=== PATIENT | male | born 1940 | race Caucasian/White ===

== ENCOUNTER 2016-08-03 11:30 | Day surgery (SDC) | payer OTHER ==
[2016-08-03] MEDS ORDERED: BENZOCAINE UNIT DOSE SPRAY HURRICAINE MM ONE (11:45)
[2016-08-03] MEDS ORDERED: MIDAZOLAM 2 MG/2 ML VIAL IVP ONE (11:45)
[2016-08-03] MEDS ORDERED: NS 1,000 ML IV ONE (11:45)
[2016-08-03] MEDS ORDERED: fentaNYL 100 MCG/2 ML INJ IVP ONE (11:45)
[2016-08-03] MEDS ORDERED: MIDAZOLAM 2 MG/2 ML VIAL ONE (12:31)
[2016-08-03] MEDS ORDERED: fentaNYL 100 MCG/2 ML INJ ONE (12:32)
--- NOTE | 2016-08-04 10:11 | ECHO ---
[id number] + + [address] : : [facility] [address] : : [phone] + + Transesophageal Echocardiographic Report + -------+ :Name: Pedro DUARTE Date: 08/03/2016 12:16 PM : : Hospital Admission Number: [id number] Locati on: 213: :: 1940 Gender: Male : :Age: 76 yrs Race: WH : :Reason For Study: Eval LV Fx : :History: Eval Aortic valve : + -------+ Left Ventricle Ejection Fraction = 50-55%. The rhythm is atrial fibrillation with a rate of 129bpm. Right Ventricle The right ventricle is normal in size and function. Atria Injection of contrast documented no interatrial shunt. The left atrium is severely dilated. No left atrial mass or thrombus visualized. The left atrial appendage has been oversewn. Mitral Valve Minimal posterior mitral leaflet prolapse. There is no mitral valve stenosis. There is moderate mitral regurgitation. The mitral regurgitant jet is anteriorly directed, which is consistent with posterior leaflet pathology. Tricuspid Valve There is moderate tricuspid regurgitation. Aortic Valve There is mild to moderate aortic valve calcification. There is no aortic valvular vegetation. Mild aortic regurgitation. Pulmonic Valve The pulmonic valve is normal in structure and function. Vessels The aortic root is normal size. Pericardium There is no pericardial effusion. Procedure With heart rate, blood pressure and oximetry monitered the patient was administered IV Versed, fentanyl and the bite block in place, the throat was anesthetized with topical spray. The Omniplane transesophageal probe was passed without difficulty. No complications. Conclusion A 2D transesophageal echocardiogram with color flow Doppler was performed. The rhythm is atrial fibrillation with a rate of 129bpm. Ejection Fraction = 50-55%. Injection of contrast documented no interatrial shunt. The left atrium is severely dilated. No left atrial mass or thrombus visualized. The left atrial appendage has been oversewn. Minimal posterior mitral leaflet prolapse There is moderate mitral regurgitation. The mitral regurgitant jet is anteriorly directed, which is consistent with posterior leaflet pathology. There is moderate tricuspid regurgitation. There is mild to moderate aortic valve calcification. There is no aortic valvular vegetation. Mild aortic regurgitation. Final Reading Physician: Dr Temi Go electronically signed on 08/04/2016 10:10 AM Ordering Physician: Temi Go Performed By: Dr Temi Go
== END 2016-08-03 15:16 | disposition home or self-care (01) ==
LOC: FCATH 11:30
PROVIDERS: ATTEND Internal Medicine Cardiovascular Disease
PROC: B246ZZ4 Ultrasonography of Right and Left Heart, Transesophageal (ICD-10-PCS; principal; 2016-08-03)
DX: I48.91 Unspecified atrial fibrillation (principal); I25.10 Atherosclerotic heart disease of native coronary artery without angina pectoris; I10 Essential (primary) hypertension; Z95.2 Presence of prosthetic heart valve; Z95.1 Presence of aortocoronary bypass graft
CPT/HCPCS: J2250; J3010

== ENCOUNTER 2016-08-13 14:44 | Emergency (ER) | payer OTHER ==
[2016-08-13 14:48] VITALS: BP 144/99; RESP 14
--- NOTE | 2016-08-13 15:02 | EDPHY ---
H & P Stated Complaint: Uncontrolled A-FIB Time Seen by Provider: 08/13/16 15:01 - Personal History Current Tetanus/Diphtheria Vaccine: Yes Current Tetanus Diphtheria and Acellular Pertussis (TDAP): Yes Tetanus Vaccine Date: 2009 - Medical/Surgical History Hx Asthma: No Hx Chronic Respiratory Disease: No Hx Diabetes: No Hx Cardiac Disease: Yes Hx Renal Disease: No Hx Cirrhosis: No Hx Alcoholism: No Hx HIV/AIDS: No Hx Splenectomy or Spleen Trauma: No Other PMH: HX: Rapid A-Fib, BPH, R KNEE REPLACEMENT, B CATARACTS, MENISCETOMY, GLUCOMA, B ING HERNIA - Social History Smoking Status: Never smoked Constitutional: Initial Vital Signs Heart Rate 133 H 08/13/16 14:46 Respiratory Rate 14 08/13/16 14:46 Blood Pressure 144/99 H 08/13/16 14:46 O2 Sat (%) 96 08/13/16 14:46 O2 Delivery Mode Room Air Allergies/Adverse Reactions: peanut Allergy (Verified 03/26/13 19:23) Home Medications: Medication Instructions Recorded Atorvastatin Calcium [Lipitor 80 80 mg PO DAILY 01/23/15 mg] Bimatoprost 0.01% [Lumigan 0.01% 1 drops EACHEYE HS 01/23/15 (*)] Cholecalciferol Vit D3 [Vitamin D3 1,000 units PO Q48H 01/23/15 (*)] Finasteride [Proscar 5 MG (*)] 5 mg PO HS 01/23/15 Levothyroxine [Synthroid 100 mcg 100 mcg PO DAILY06 01/23/15 (*)] Levothyroxine [Synthroid 88 mcg 88 mcg PO SUMOWEFR 01/23/15 (*)] Multivitamins [Multivitamin (*)] 1 each PO Q3D 01/23/15 Apixaban [Eliquis] 5 mg PO BID #60 tab 01/30/15 Toprol Xl 50 mg (*) 50 mg PO BID 08/03/16 Medical Decision Making ED Course/Re-evaluation: CHIEF COMPLAINT: Atrial fibrillation HISTORY OF PRESENT ILLNESS: This is an anticoagulated 76 y/o male arriving with his at the referral of his PCP due to rapid atrial fibrillation rate of 140 today. He has a significant cardiac disease history including CAD, CABG, and atrial fibrillation. He states his atrial fibrillation has been poorly controlled over the last 2 years, but he is largely unaware when he is not in a normal rhythm. He feels his rate has been marginally more rapid over the last couple weeks. On 08/03/16, 10 days ago, he had a GERMAINE that did not show vegetation and was placed on a 24hr Holter monitor with plan to increase his Toprol dose to 50mg BID. He is due to follow up with Dr. Go in the next week. He says he has felt slightly short of breath at exertion for the last few weeks , but otherwise feels like he is at his baseline. He denies dizziness, lightheadedness, chest pain, or palpitations. He reports he is compliant with his medications. REVIEW OF SYSTEMS: A 10 point review of systems was performed and is negative with the exception of the elements mentioned in the history of present illness. PHYSICAL EXAM: HR, BP, O2 Sat, RR. Temp noted General Appearance: Alert, well hydrated, appropriate, and non-toxic appearing. Head: Atraumatic without scalp tenderness or obvious injury Eyes: Pupils equal, round, reactive to light and accommodation, EOMI, no trauma , no injection. Nose: Atraumatic, no rhinorrhea, clear. Throat: mucus membranes moist. Neck: Supple Respiratory: No retractions, no distress, no wheezes, and no accessory muscle use. Lungs are clear to auscultation bilaterally. Cardiovascular: Irregularly irregular rapid rate. Good capillary refill all extremities. Gastrointestinal: Abdomen is soft, nontender, non-distended, no masses, no rebound, no guarding, no peritoneal signs. Musculoskeletal: Normal active ROM of all extremities, atraumatic. Neurological: Alert, appropriate, and interactive. Nonfocal neuro exam. Skin: No rashes, good turgor, no nodules on palpation. Past medical history: atrial fibrillation - Eliquis, CAD, hypothyroidism Past surgical history: CABG Family history: noncontributory Social history: at bedside. 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 Ame Mcintosh Prior medical records reviewed including cath report 01/15/15. DIAGNOSTICS/PROCEDURES/CRITICAL CARE TIME: The 12 lead EKG was interpreted by myself. Atrial fibrillation rate 130. See hard copy and/or "tracemaster" electronic copy for interpretation. DIFFERENTIAL DIAGNOSIS: The differential diagnosis for the patient's narrow complex tachycardia included but was not limited to various causes of sinus tachycardia such as dehydration and medicines, SVT, atrial flutter, atrial fibrillation, pulmonary causes. MEDICAL DECISION MAKING: This is a 76 y/o male with chronic poorly-controlled atrial fibrillation who presents at the referral of his PCP due to rapid atrial fibrillation, but with no acute complaints. His PCP was unable to get him into his cryptologic supervisor's office today, so referred him to the ED. He denies any acute symptoms related to this and is generally unable to tell when he is not in a normal rhythm. His EKG here shows rapid atrial fibrillation rate around 130. His exam is otherwise unremarkable. IV established. Basic labs drawn. Plan to consult cardiology to determine their long-term management plan for him. 1530: Consulted with [facility]. Dr. Go has recommended starting Diltazem CD in addition to his Toprol and follow up with her as scheduled. She is not concerned about any lab work today, even if abnormal labs return. I discussed this plan with the patient. He is comfortable with this plan and ready for discharge home. Strict return precautions given. - Data Points Laboratory Results: Laboratory Results 08/13/16 15:20 08/13/16 15:20 08/13/16 08/13/16 08/13/16 15:20 15:20 15:20 WBC 7.62 10^3/uL 10^3/uL (3.80-9.50) RBC 5.18 10^6/uL 10^6/uL (4.40-6.38) Hgb 13.0 g/dL L g/dL (13.7-17.5) Hct 40.9 % % (40.0-51.0) MCV 79.0 fL L fL (81.5-99.8) MCH 25.1 pg L pg (27.9-34.1) MCHC 31.8 g/dL L g/dL (32.4-36.7) RDW 15.1 % % (11.5-15.2) Plt Count 161 10^3/uL 10^3/uL (150-400) MPV 11.1 fL fL (8.7-11.7) Neut % (Auto) 66.3 % % (39.3-74.2) Lymph % (Auto) 20.9 % % (15.0-45.0) Brown % (Auto) 9.4 % % (4.5-13.0) Eos % (Auto) 2.4 % % (0.6-7.6) Baso % (Auto) 0.7 % % (0.3-1.7) Nucleat RBC Rel Count 0.0 % % (0.0-0.2) Absolute Neuts (auto) 5.06 10^3/uL 10^3/uL (1.70-6.50) Absolute Lymphs (auto) 1.59 10^3/uL 10^3/uL (1.00-3.00) Absolute Monos (auto) 0.72 10^3/uL 10^3/uL (0.30-0.80) Absolute Eos (auto) 0.18 10^3/uL 10^3/uL (0.03-0.40) Absolute Basos (auto) 0.05 10^3/uL 10^3/uL (0.02-0.10) Absolute Nucleated RBC 0.00 10^3/uL 10^3/uL (0-0.01) Immature Gran % 0.3 % % (0.0-1.1) Immature Gran # 0.02 10^3/uL 10^3/uL (0.00-0.10) PT 17.7 SEC H SEC (12.0-15.0) INR 1.46 H (0.83-1.16) APTT 34.3 SEC SEC (23.0-38.0) Sodium 140 mEq/L mEq/L (134-144) Potassium 4.2 mEq/L mEq/L (3.5-5.2) Chloride 107 mEq/L mEq/L (97-110) Carbon Dioxide 23 mEq/l mEq/l (22-31) Anion Gap 10 mEq/L mEq/L (8-16) BUN 22 mg/dL mg/dL (7-23) Creatinine 1.1 mg/dL mg/dL (0.7-1.3) Estimated GFR > 60 Glucose 147 mg/dL H mg/dL (70-100) Calcium 9.2 mg/dL mg/dL (8.5-10.4) Magnesium 1.9 mg/dL mg/dL (1.6-2.3) Troponin I 0.013 ng/mL ng/mL (0-0.034) NT-Pro-B Natriuret Pep 2480 pg/mL H pg/mL (0-450) TSH 0.439 uIU/mL L uIU/mL (0.465-4.680) Departure - Departure Disposition: Home, Routine, Self-Care Clinical Impression: Atrial fibrillation Qualifiers: Atrial fibrillation type: chronic Qualified Code(s): I48.2 - Chronic atrial fibrillation Condition: Good Instructions: Diltiazem (By mouth), A-fib (Atrial Fibrillation) (ED) Additional Instructions: 1. Take 125mg Diltazem daily until instructed otherwise by Dr. Go. 2. Continue taking your Toprol as directed. 3. Follow up with Dr. Go as planned. 4. Return to the ED for chest pain, worsening shortness of breath, lightheadedness, fainting, or other worsening of condition. Referrals: Ame Mcintosh MD [Primary Care Provider] - As per Instructions Temi Go MD [Medical Doctor] - As per Instructions Report Scribed for: Maverick Campuzano Report Scribed by: Fatou Ireland Date of Report: 08/13/16 Time of Report: 15:13
--- NOTE | 2016-08-13 15:06 | CPEKG ---
Heart Rate: 120 RR Interval: 500 QRSD Interval: 100 QT Interval: 348 QTC Interval: 492 QRS Jewett: 15 T Wave Jewett: 194 EKG Severity - ABNORMAL ECG - EKG Impression: ATRIAL FLUTTER WITH 2:1 AV BLOCK EKG Impression: PAIRED VENTRICULAR PREMATURE COMPLEXES EKG Impression: BORDERLINE PROLONGED QT INTERVAL Electronically Signed By: Maverick Campuzano 13-Aug-2016 22:49:54
[2016-08-13 15:35] LABS: % IMMATURE GRANULYOCYTES 0.3 % (0.0-1.1); ABSOLUTE IMMATURE GRANULOCYTES 0.02 10^3/uL (0.00-0.10); ADD DIFF? NO; ADD MORPH? NO; ADD SCAN? NO; ATYPICAL LYMPHOCYTE FLAG 0 (0-99); FRAGMENT RBC FLAG 0 (0-99); HEMATOCRIT 40.9 % (40.0-51.0); LEFT SHIFT FLG 0 (0-99); LIPEMIA HEMOLYSIS FLAG 80 (0-99); MEAN CELL HEMOGLOBIN 25.1 pg (27.9-34.1); MEAN CELL HEMOGLOBIN CONCENTR. 31.8 g/dL (32.4-36.7); MEAN PLATELET VOLUME 11.1 fL (8.7-11.7); PLATELET CLUMPS FLAG 0 (0-99); PLATELET COUNT 161 10^3/uL (150-400); RED BLOOD CELL COUNT 5.18 10^6/uL (4.40-6.38); RED CELL DISTRIBUTION WIDTH 15.1 % (11.5-15.2)
[2016-08-13] MEDS ORDERED: DILTIAZEM CD 120 MG CAP PO SCH (15:45)
[2016-08-13 15:48] LABS: ANION GAP 10 mEq/L (8-16); CALCIUM 9.2 mg/dL (8.5-10.4); CARBON DIOXIDE 23 mEq/l (22-31); CHLORIDE 107 mEq/L (97-110); CREATININE 1.1 mg/dL (0.7-1.3); GLOMERULAR FILTRATION RATE > 60; GLUCOSE 147 mg/dL (70-100); MAGNESIUM 1.9 mg/dL (1.6-2.3); POTASSIUM 4.2 mEq/L (3.5-5.2); SODIUM 140 mEq/L (134-144)
[2016-08-13 15:50] LABS: INR 1.46 (0.83-1.16); PROTIME(PATIENT) 17.7 SEC (12.0-15.0)
[2016-08-13 15:51] LABS: APTT 34.3 SEC (23.0-38.0)
[2016-08-13 16:01] LABS: TROPONIN I 0.013 ng/mL (0-0.034)
[2016-08-13 16:41] VITALS: PULSE 110; O2SAT 94
== END 2016-08-13 16:40 | disposition home or self-care (01) ==
DX: I48.2 Chronic atrial fibrillation (principal); I25.810 Atherosclerosis of coronary artery bypass graft(s) without angina pectoris; Z79.01 Long term (current) use of anticoagulants

== ENCOUNTER → 2016-08-25 | Outpatient (CLI) | payer OTHER | LOC: FIMAGING 13:15 | PROVIDERS: ATTEND Internal Medicine Cardiovascular Disease | DX: J84.9 Interstitial pulmonary disease, unspecified (principal); I48.91 Unspecified atrial fibrillation ==

== ENCOUNTER → 2016-08-31 | Day surgery (SDC) | payer OTHER ==
[~2016-08-31] MED LIST: MIDAZOLAM 2 MG/2 ML VIAL IVP ONE; NS 500 ML IV ONE; PROPOFOL 200 MG/20 ML VIAL IVP ONE; fentaNYL 100 MCG/2 ML INJ IVP ONE
[2016-08-31 09:00] LABS: INR 1.5 (0.83-1.16); PROTIME(PATIENT) 18.1 SEC (12.0-15.0)
[2016-08-31 09:01] LABS: APTT 37.4 SEC (23.0-38.0)
[2016-08-31 09:09] LABS: ANION GAP 9 mEq/L (8-16); CALCIUM 9.5 mg/dL (8.5-10.4); CARBON DIOXIDE 22 mEq/l (22-31); CHLORIDE 107 mEq/L (97-110); CREATININE 1.3 mg/dL (0.7-1.3); GLOMERULAR FILTRATION RATE 53; GLUCOSE 101 mg/dL (70-100); POTASSIUM 4.3 mEq/L (3.5-5.2); SODIUM 138 mEq/L (134-144)
--- NOTE | 2016-08-31 10:04 | CPEKG ---
Heart Rate: 94 RR Interval: 638 P-R Interval: 248 QRSD Interval: 102 QT Interval: 412 QTC Interval: 516 P [place]bury: 48 QRS [place]: 30 T Wave [place]: 179 EKG Severity - ABNORMAL ECG - EKG Impression: SINUS RHYTHM EKG Impression: RUN OF VENTRICULAR PREMATURE COMPLEXES EKG Impression: FIRST DEGREE AV BLOCK EKG Impression: compared EKG August 13, sinus rhythm has replaced atrial flutter EKG Impression: PROBABLE LVH WITH SECONDARY REPOL ABNRM Electronically Signed By: David Valenzuela 31-Aug-2016 10:35:47
--- NOTE | 2016-08-31 10:42 | CPIP ---
[f rep st] INVASIVE CARDIAC PROCEDURE DATE OF PROCEDURE: 08/31/2016 PROCEDURE: Direct current cardioversion. INDICATIONS: Symptomatic atrial flutter. COMPLICATIONS: None apparent. DESCRIPTION OF PROCEDURE: N.p.o. status was confirmed, informed consent obtained, and time-out perf ormed. Sedation was provided by the anesthesia service. The patient has been taking his Eliquis wi thout any missed doses for greater than 6 weeks so, therefore, we did not perform GERMAINE. The patient received a single 200-joule synchronized shock, which converted him from atrial flutter to sinus rhythm with PVCs. 12-lead EKG is pending. CONCLUSIONS: 1. Successful direct current cardioversion. 2. Continue Eliquis and metoprolol. 3. Discontinue diltiazem. 4. Follow up as scheduled on 09/[address] Go. Results discussed with the patient's family. /[id number]/MODL
--- NOTE | 2016-08-31 14:05 | CPEKG ---
Heart Rate: 108 RR Interval: 556 QRSD Interval: 106 QT Interval: 384 QTC Interval: 515 QRS [place]vas: 49 T Wave Canvas: 246 EKG Severity - ABNORMAL ECG - EKG Impression: ATRIAL FLUTTER, A-RATE 283 EKG Impression: RUN OF VENTRICULAR PREMATURE COMPLEXES EKG Impression: PROBABLE LVH WITH SECONDARY REPOL ABNRM EKG Impression: PROLONGED QT INTERVAL Electronically Signed By: Andrea Chu 01-Sep-2016 12:25:06
== END | disposition home or self-care (01) ==
LOC: FCATH 08:10
PROVIDERS: ATTEND Internal Medicine Cardiovascular Disease
PROC: 5A2204Z Restoration of Cardiac Rhythm, Single (ICD-10-PCS; principal; 2016-08-31)
DX: I48.92 Unspecified atrial flutter (principal); I25.10 Atherosclerotic heart disease of native coronary artery without angina pectoris; Z95.1 Presence of aortocoronary bypass graft; I10 Essential (primary) hypertension; I38 Endocarditis, valve unspecified; E78.5 Hyperlipidemia, unspecified; E03.9 Hypothyroidism, unspecified; G47.30 Sleep apnea, unspecified
CPT/HCPCS: J2250; J2704

== ENCOUNTER 2016-10-20 07:17 | Observation (INO) | payer OTHER ==
[2016-10-20] MEDS ORDERED: MIDAZOLAM 2 MG/2 ML VIAL IVP ONE (07:24)
[2016-10-20] MEDS ORDERED: NS 1,000 ML IV ONE (07:24)
[2016-10-20] MEDS ORDERED: BUPIVACAINE 0.5% 30 ML SDV ONE (07:28)
[2016-10-20] MEDS ORDERED: HEPARIN 10,000 UNIT/10 ML MDV ONE (07:28)
[2016-10-20] MEDS ORDERED: LIDOCAINE 1% 300 MG/30 ML SDV ONE (07:28)
--- NOTE | 2016-10-20 07:39 | CPEKG ---
Heart Rate: 106 RR Interval: 566 QRSD Interval: 100 QT Interval: 396 QTC Interval: 526 QRS Pelham: 30 T Wave Pelham: 227 EKG Severity - ABNORMAL ECG - EKG Impression: ATRIAL FLUTTER, A-RATE 288 EKG Impression: PAIRED VENTRICULAR PREMATURE COMPLEXES EKG Impression: PROBABLE LVH WITH SECONDARY REPOL ABNRM Electronically Signed By: Huber Jc 20-Oct-2016 11:06:48
[2016-10-20 07:58] LABS: % IMMATURE GRANULYOCYTES 0.4 % (0.0-1.1); ABSOLUTE IMMATURE GRANULOCYTES 0.03 10^3/uL (0.00-0.10); ADD DIFF? NO; ADD MORPH? NO; ADD SCAN? NO; ATYPICAL LYMPHOCYTE FLAG 10 (0-99); FRAGMENT RBC FLAG 0 (0-99); HEMATOCRIT 39.3 % (40.0-51.0); HEMOGLOBIN 12.5 g/dL (13.7-17.5); LEFT SHIFT FLG 0 (0-99); LIPEMIA HEMOLYSIS FLAG 80 (0-99); MEAN CELL HEMOGLOBIN 24.8 pg (27.9-34.1); MEAN CELL HEMOGLOBIN CONCENTR. 31.8 g/dL (32.4-36.7); MEAN CELL VOLUME 77.8 fL (81.5-99.8); MEAN PLATELET VOLUME 11.5 fL (8.7-11.7); PLATELET CLUMPS FLAG 0 (0-99); PLATELET COUNT 164 10^3/uL (150-400); RED BLOOD CELL COUNT 5.05 10^6/uL (4.40-6.38); RED CELL DISTRIBUTION WIDTH 15.9 % (11.5-15.2)
[2016-10-20 08:03] LABS: INR 1.28 (0.83-1.16)
[2016-10-20 08:13] LABS: ANION GAP 10 mEq/L (8-16); CALCIUM 9.2 mg/dL (8.5-10.4); CARBON DIOXIDE 23 mEq/l (22-31); CHLORIDE 110 mEq/L (97-110); CREATININE 1.1 mg/dL (0.7-1.3); GLOMERULAR FILTRATION RATE > 60; GLUCOSE 96 mg/dL (70-100); MAGNESIUM 1.7 mg/dL (1.6-2.3); POTASSIUM 4.2 mEq/L (3.5-5.2); SODIUM 143 mEq/L (134-144)
[2016-10-20] MEDS ORDERED: fentaNYL 100 MCG/2 ML INJ ONE ×2 (08:54→12:51)
[2016-10-20] MEDS ORDERED: ROCURONIUM 50 MG/5 ML VIAL ONE ×2 (08:54→10:11)
[2016-10-20] MEDS ORDERED: DEXAMETHASONE 4 MG/ML VIAL ONE (08:54)
[2016-10-20] MEDS ORDERED: PROPOFOL/EMULSION 500 MG/50 ML BOTTLE IV ONE ×2 (08:54→09:55)
[2016-10-20] MEDS ORDERED: ONDANSETRON 4 MG/2 ML VIAL ONE (08:59)
[2016-10-20] MEDS ORDERED: PHENYLEPHRINE HCL 100 MCG/ML SYR ONE ×2 (09:15→09:46)
[2016-10-20] MEDS ORDERED: epHEDrine SULFATE 10 MG/ML SYR ONE ×2 (09:15→09:19)
[2016-10-20] MEDS ORDERED: PHENYLEPHRINE 10 MG/ML SDV ONE (09:51)
[2016-10-20] MEDS ORDERED: SUGAMMADEX SODIUM 200 MG/2 ML VIAL IVP ONE (10:55)
[2016-10-20] MEDS ORDERED: ATROPINE SULFATE 1 MG/10 ML SYR ONE (10:58)
[2016-10-20] MEDS ORDERED: PROTAMINE SULFATE 50 MG/5 ML VIAL IVP ONE (10:59)
[2016-10-20] MEDS ORDERED: LR 500 ML IV PRN (11:45)
[2016-10-20] MEDS ORDERED: ONDANSETRON 4 MG/2 ML VIAL IVP PRN (11:45)
[2016-10-20] MEDS ORDERED: HYDROCODONE/APAP 5/325 TAB PO PRN (11:45)
[2016-10-20] MEDS ORDERED: MEPERIDINE 25 MG/ML SYR IVP PRN (11:45)
[2016-10-20] MEDS ORDERED: NALOXONE HCL 0.4 MG/ML INJ IVP PRN (11:45)
[2016-10-20] MEDS ORDERED: fentaNYL 100 MCG/2 ML INJ IVP PRN (11:45)
[2016-10-20] MEDS ORDERED: ACETAMINOPHEN 500 MG TAB PO PRN (11:45)
[2016-10-20] MEDS ORDERED: LABETALOL HCL 50 MG/10 ML SYR IVP PRN (11:45)
--- NOTE | 2016-10-20 12:05 | EPPROC ---
Electrophysiology Procedure Note: ELECTROPHYSIOLOGIC STUDY AND CATHETER MEDIATED ABLATION FOR SUBEUSTACHIAN ISTHMUS DEPENDENT COUNTERCLOCKWISE ATRIAL FLUTTER: INDICATION: Recurrent atrial flutter PROCEDURES PERFORMED: 90877-29 EP evaluation with RA/RV/LA pace/record, with arrhythmia induction 44315-33 EP evaluation with RA/RV pace record, insert/reposition catheter, with arrhythmia induction 45162 SVT ablation 93835 3D mapping Fluoroscopy Catheters & Anesthesia: The patient arrived in the Electrophysiology Laboratory in the fasting state. The right clavicular region, right groin, and left groin area were prepped and draped in the usual sterile manner. Anesthesiologist Dr. Linda Baker administered general anesthesia. Appropriate non-invasive blood pressure, pulse oximetry and end-tidal CO2 monitoring was established. GERMAINE done preprocedure showed moderate to severe MR, GRIFFIN was surgically excluded from his prior surgery. This was reviewed with patients supervisor statement clerks Dr. Go and we decided to move forward with ablation for atrial flutter. All catheters were placed percutaneously using the modified Seldinger technique , and advanced into position under fluoroscopic guidance. One #7 Cambodian deflectable octapolar electrode catheter was advanced to the His-bundle position via the left femoral vein (2mm spacing; except the proximal ring which was 25cm from the tip used for unipolar recordings) and then to the CS ostium for pacing. One # 7 Cambodian Halo catheter was inserted through the right femoral vein and was placed at the tricuspid annulus. Heparin 9000 U was given. Patient was off Eliquis x 24 hrs.. On arrival to the Electrophysiology Laboratory the patient was in atrial flutter , CL 230 ms, entrainment mapping confirmed cavotricuspid isthmus dependent atrial flutter. Cardioversion was performed due to hypotension. In preparation for ablation of typical atrial flutter, a high-resolution 3D (3 dimensional) Carto electroanatomical map of the sub-Eustachian isthmus and right atrium was obtained during pacing of the posterolateral coronary sinus. For ablation of typical atrial flutter, one Agilis sheath was placed in the right atrium. A #8 Cambodian deflectable quadrapolar electrode catheter (2mm-5mm- 2mm spacing) with 3.5 mm irrigated tip electrode and location sensor for the Intexys mapping system was inserted in the long sheath and advanced to the right atrium. Radiofrequency applications were applied between the tricuspid annulus at 0630 oclock as seen in the JAIR view and the inferior vena cava. This achieved conduction block across the isthmus. Following ablation of the atrial flutter, programmed atrial stimulation was performed in the baseline state. No atrial arrhythmias were inducible post ablation. Post ablation, a high-resolution electroanatomical map of the sub-Eustachian isthmus was obtained during pacing of the posterolateral coronary sinus. This confirmed conduction block across the sub-Eustachian isthmus. Bidirectional block was also confirmed by pacing. The catheters were removed. Long sheath was changed to short sheath. The patient was transferred to the cardiovascular holding area in stable condition. Vascular access sheaths were removed in the holding area. There were no apparent complications. CONCLUSIONS: 1. 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 2. Successful catheter mediated ablation of cavotricuspid isthmus achieving bi -directional conduction block across cavotricuspid isthmus. 3. No apparent complications. 4. May need definitive therapy for mitral regurgitation in near future. Will reassess with echocardiogram during sinus rhythm. Patient Problems: Problems Problem Status Onset CAD, multiple vessel Acute Ascending aorta enlargement Acute Aortic valve insufficiency Acute Pulmonary nodules/lesions, multiple Chronic Emphysema of lung Acute Frequent PVCs Chronic S/P CABG x 4 Acute Postoperative atrial fibrillation Acute
[2016-10-20] MEDS ORDERED: FUROSEMIDE 40 MG TAB PO PRN (12:11)
[2016-10-20 12:27] LABS: ANION GAP 8 mEq/L (8-16); CALCIUM 8.4 mg/dL (8.5-10.4); CARBON DIOXIDE 22 mEq/l (22-31); CHLORIDE 112 mEq/L (97-110); CREATININE 1.1 mg/dL (0.7-1.3); GLOMERULAR FILTRATION RATE > 60; GLUCOSE 110 mg/dL (70-100); MAGNESIUM 1.6 mg/dL (1.6-2.3); POTASSIUM 4.7 mEq/L (3.5-5.2); SODIUM 142 mEq/L (134-144)
--- NOTE | 2016-10-20 12:41 | CPEKG ---
Heart Rate: 79 RR Interval: 759 P-R Interval: 232 QRSD Interval: 100 QT Interval: 440 QTC Interval: 505 P Concan: 51 QRS Concan: 41 T Wave Concan: 207 EKG Severity - ABNORMAL ECG - EKG Impression: SINUS RHYTHM EKG Impression: VENTRICULAR PREMATURE COMPLEX EKG Impression: FIRST DEGREE AV BLOCK EKG Impression: PROBABLE LVH WITH SECONDARY REPOL ABNRM EKG Impression: PROLONGED QT INTERVAL Electronically Signed By: Huber Jc 20-Oct-2016 18:50:59
[2016-10-20] MEDS ORDERED: CHOLECALCIFEROL VIT D3 1,000 UNITS TAB PO SCH (14:45)
[2016-10-20] MEDS ORDERED: MULTIVITAMINS 1 EACH TAB PO SCH (14:45)
--- NOTE | 2016-10-20 17:39 | CPEKG ---
Heart Rate: 94 RR Interval: 638 P-R Interval: 232 QRSD Interval: 96 QT Interval: 404 QTC Interval: 506 P [place]: 47 QRS [place]: 36 T Wave [place]: 218 EKG Severity - ABNORMAL ECG - EKG Impression: SINUS RHYTHM EKG Impression: PVC EKG Impression: FIRST DEGREE AV BLOCK EKG Impression: ABNORMAL T, CONSIDER ISCHEMIA, DIFFUSE LEADS Electronically Signed By: Huber Jc 20-Oct-2016 18:50:52
[2016-10-20] MEDS ORDERED: FINASTERIDE 5 MG TAB PO SCH (21:00)
[2016-10-20] MEDS ORDERED: BIMATOPROST 0.01% 2.5 ML OPHT.BTL EACHEYE SCH (21:00)
[2016-10-20] MEDS ORDERED: ZOLPIDEM TARTRATE 5 MG TAB PO ONE (21:15)
[2016-10-20] MEDS ORDERED: MAGNESIUM SULF 2 GM/WATER 50 ML IV ONE (21:30)
[2016-10-21 03:31] VITALS: RESP 20
[2016-10-21 04:20] LABS: % IMMATURE GRANULYOCYTES 0.4 % (0.0-1.1); ABSOLUTE IMMATURE GRANULOCYTES 0.03 10^3/uL (0.00-0.10); ADD DIFF? NO; ADD MORPH? NO; ADD SCAN? NO; ATYPICAL LYMPHOCYTE FLAG 0 (0-99); FRAGMENT RBC FLAG 0 (0-99); HEMATOCRIT 35.8 % (40.0-51.0); HEMOGLOBIN 11.1 g/dL (13.7-17.5); LEFT SHIFT FLG 0 (0-99); LIPEMIA HEMOLYSIS FLAG 80 (0-99); MEAN CELL HEMOGLOBIN 24.4 pg (27.9-34.1); MEAN CELL VOLUME 78.9 fL (81.5-99.8); MEAN PLATELET VOLUME 11.9 fL (8.7-11.7); PLATELET CLUMPS FLAG 0 (0-99); PLATELET COUNT 157 10^3/uL (150-400); RED BLOOD CELL COUNT 4.54 10^6/uL (4.40-6.38); RED CELL DISTRIBUTION WIDTH 15.8 % (11.5-15.2)
[2016-10-21 04:29] LABS: INR 1.25 (0.83-1.16); PROTIME(PATIENT) 15.7 SEC (12.0-15.0)
[2016-10-21 04:41] LABS: ANION GAP 10 mEq/L (8-16); CALCIUM 9.1 mg/dL (8.5-10.4); CARBON DIOXIDE 21 mEq/l (22-31); CHLORIDE 109 mEq/L (97-110); GLOMERULAR FILTRATION RATE > 60; GLUCOSE 102 mg/dL (70-100); POTASSIUM 4.6 mEq/L (3.5-5.2); SODIUM 140 mEq/L (134-144)
[2016-10-21 04:49] LABS: CREATINE KINASE-MB FRACTION 1.75 ng/mL (0-3.19); TROPONIN I 0.422 ng/mL (0-0.034)
[2016-10-21] MEDS ORDERED: LEVOTHYROXINE 88 MCG TAB PO SCH (06:00)
[2016-10-21 07:49] VITALS: BP 136/82; PULSE 82; TEMP 97.8; O2SAT 91
[2016-10-21] MEDS ORDERED: APIXABAN 5 MG TAB PO SCH (08:00)
--- NOTE | 2016-10-21 08:44 | ECHO ---
[id number] [id number] + + [address] : : [place] [address] : : [phone] + + Adult Echocardiographic Report + ---------+ :Name: Barbara DUARTE Pedro Date: 10/21/2016 07:39 AM : : Hospital Admission Number: [id number] Pam marsh: 212: :: 1940 Gender: Male Height: 71 i n : :Age: 76 yrs Race: WH Weight: 214 lb : :Reason For Study: F/U post EP study : : BSA: 2.2 met ers2 : :History: CABG : + ---------+ MMode/2D Measurements \T\ Calculations IVSd: 1.5 cm LVIDd: 4.6 cm FS: 33.5 % Ao root diam: LVPWd: 1.4 cm LVIDs: 3.1 cm EDV(Teich): 99.8 ml3.4 cm ESV(Teich): 37.6 mlLA dimension: EF(Teich): 62.3 % 5.1 cm LVOT diam: 2.6 cmLVLd ap4: 8.3 cm SV(MOD-sp4): LVOT area: EDV(MOD-sp4): 85.0 ml 5.4 cm2 134.0 ml LVLs ap4: 7.1 cm ESV(MOD-sp4): 49.0 ml EF(MOD-sp4): 63.4 % Normal Measurement Values: + + :LVIDd (3.5-5.7cm) IVSd (0.6-1.1cm) LVPWd (0.6-1.1cm) Aortic Root (2.0-3.7cm)Left Atrium (1.5-4.0cm): :LV Vol(d) (76-115ml) LV Vol(s) (29-48ml) Ejec Fraction (50-65%)PV Sachin (0.6- 1.2m/s) TV Sachin (0.4-1.0m/s) : :MV E Sachin (0.8-1.0m/s)MV A Sachni (0.3-1.0m/s)LVOT Sachin (0.7-1.2m/s) Asc Ao Sachin ( 0.9-1.8m/s) : + + Doppler Measurements \T\ Calculations MV E max sachin: MV V2 max: Ao mean PG: AI max sachin: 119.4 cm/sec 115.1 cm/sec 2.8 mmHg 410.5 cm/sec MV A max sachin: MV max PG: Ao V2 mean: AI max P.4 mmHg 36.5 cm/sec 5.3 mmHg 77.2 cm/sec AI dec slope: MV E/A: 3.3 MV V2 mean: Ao V2 VTI: 201.3 cm/sec2 50.9 cm/sec 22.0 cm AI P1/2t: 597.2 msec MV mean PG: DANIEL(I,D): 4.1 cm2 1.2 mmHg MV V2 VTI: 25.6 cm MVA(VTI): 3.6 cm2 LV V1 mean PG: MR max sachin: SV(LVOT): 91.1 ml TR max sachin: 1.2 mmHg 480.0 cm/sec 313.7 cm/sec LV V1 mean: MR max PG: TR max P.4 mmHg 51.1 cm/sec 92.1 mmHg RAP systole: LV V1 VTI: 16.9 cm 5.0 mmHg RVSP(TR): 44.4 mmHg Left Ventricle The left ventricle is normal in size. There is normal left ventricular wall thickness. Left ventricular systolic function is normal. Ejection Fraction = 60-65%. Septal motion is consistent with conduction abnormality. Septal motion is consistent with post-operative state. Right Ventricle The right ventricle is normal in size and function. Atria The left atrium is severely dilated. Right atrial size is normal. The interatrial septum is intact with no evidence for an atrial septal defect. Mitral Valve MV posterior leaflet appears to have decreased movement. There is no evidence of mitral valve prolapse. There is no mitral valve stenosis. Moderate to severe eccentric jet of mitral regurgitation. Tricuspid Valve Normal tricuspid valve. There is moderate tricuspid regurgitation. Right ventricular systolic pressure is 45mmHg. There is Doppler evidence for mild pulmonary hypertension. Aortic Valve The aortic valve is trileaflet. The aortic valve opens well. Mild calcification of the NCC of the aortic valve. There is no aortic stenosis. Mild aortic regurgitation. Pulmonic Valve The pulmonic valve is normal in structure and function. There is no pulmonic valvular regurgitation. Great Vessels The aortic root is normal size. Pericardium/Pleural There is no pericardial effusion. Conclusion A complete two-dimensional transthoracic echocardiogram was performed (2D, M-mode, Doppler and color flow Doppler). Left ventricular systolic function is normal. Ejection Fraction = 60-65%. Septal motion is consistent with conduction abnormality. Septal motion is consistent with post-operative state. The left atrium is severely dilated. Moderate to severe eccentric jet of mitral regurgitation. There is moderate tricuspid regurgitation. Right ventricular systolic pressure is 45mmHg. There is Doppler evidence for mild pulmonary hypertension. Mild calcification of the NCC of the aortic valve. Mild aortic regurgitation. There is no pericardial effusion. Final Reading Physician: Huber Jc MD electronically signed on 10/21/2016 08:42 AM Ordering Physician: Huber Jc Performed By: Yumiko Villanueva, CS
[2016-10-21] MEDS ORDERED: NEBIVOLOL HCL 5 MG TAB PO SCH (09:00)
[2016-10-21] MEDS ORDERED: NON-FORMULARY NEW DRUG (Nebivolol Hcl [Bystolic] 20 MG) PO SCH (09:00)
[2016-10-21] MEDS ORDERED: NON-FORMULARY NEW DRUG (Atorvastatin Calcium [Lipitor 80 Mg] 80 MG) PO SCH (09:00)
[2016-10-21] MEDS ORDERED: ATORVASTATIN CALCIUM 40 MG TAB PO SCH (09:00)
--- NOTE | 2016-10-21 09:22 | CPEKG ---
Heart Rate: 122 RR Interval: 492 QRSD Interval: 102 QT Interval: 364 QTC Interval: 519 QRS [place]: 41 T Wave [place]: 225 EKG Severity - ABNORMAL ECG - EKG Impression: Atrial tachycardia EKG Impression: VENTRICULAR PREMATURE COMPLEX EKG Impression: REPOL ABNRM SUGGESTS ISCHEMIA, ANT-LAT LEADS Electronically Signed By: Huber Jc 21-Oct-2016 10:53:06
--- NOTE | 2016-10-21 22:53 | GDS ---
[f rep st] DISCHARGE SUMMARY DISCHARGE DIAGNOSES: 1. Atrial flutter status post ablation. 2. Hypertension. 3. Coronary artery disease status post coronary artery bypass grafting and left atrial appendage ligation in 2014. 4. Mitral regurgitation. 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 He has been symptomatic with dyspnea on exertion and exercise intolerance. He has a CHADS Vasc of 4 and takes Eliquis. HOSPITAL COURSE: He presented to the EP lab in atrial flutter and was cardioverted due to hypotension. He had a GERMAINE prior to the ablation, which demonstrated severe MR and left atrial appendage that was previously surgically excluded. Dr. Jc performed a successful catheter ablation of the cavotricuspid isthmus achieving bidirectional block across the cavotricuspid isthmus. The patient did well overnight. He did not have any atrial flutter noted on telemetry. He did have runs of short atrial tachycardia, as well as PACs, PVCs, and couplets. He denies any symptoms of palpitations, chest pain, pressure, shortness of breath, bleeding at his groin site or pain in his legs. PHYSICAL EXAMINATION: VITAL SIGNS: Blood pressure is 136/82, pulse is 82, respirations 20, temperature 36.6, O2 saturation on room air is 91%. GENERAL: He is alert and oriented, sitting up in chair in no acute distress. CARDIAC: Irregular rhythm with a 2/6 blowing systolic murmur at the left sternal border. LUNGS: Clear except for some mild crackles in his left lower lobe, which have apparently been present per his report. ABDOMEN: Soft and nontender. : Groin sites are without bleeding, swelling, or ecchymosis. EXTREMITIES: Legs are warm. No discoloration, no tightness or edema. LABORATORY DATA: WBC is 8.44, hemoglobin 11.1, hematocrit 35.8, platelets 157. PT is 15.7. INR is 1.25. Sodium 140, potassium 4.6, chloride 109, bicarb 21 , BUN is 17, and creatinine is 1.02. CK is 73, CK-MB is 1.75. Troponin is 0.422. These are elevated and to be expected post ablation. Testing done in the hospital: Echocardiogram demonstrated ejection fraction of 60% to 65%. Left atrium is severely dilated. There is moderate to severe MR and moderate TR. Estimated RVSP is 45 mmHg. DISCHARGE INSTRUCTIONS: Post ablation activity restrictions were reviewed, and the patient was given a printed handout of these instructions. DISCHARGE MEDICATIONS: Please see discharge medication reconciliation. Of note , he is continuing Bystolic 20 mg, and the diltiazem was discontinued. He was restarted on Eliquis twice daily. FOLLOWUP: He has a followup with Dr. Jc on November 18, and he has an echocardiogram on November 24, and a followup with Dr. Go immediately after that. /[id number]/MODL MTDD
--- NOTE | 2016-10-24 14:07 | ECHO ---
[id number] + + [address] : : [facility] [address] : : [phone] + Transesophageal Echocardiographic Report + --------+ :Name: Jessee DUARTECristhian Date: 10/20/2016 09:03 AM : : Hospital Admission Number: [id number] Locjessee tinell: EP: :: [id number] Gender: Male : :Age: 76 yrs Race: WH : :Reason For Study: Eval Valves : :History: Pre Ablation : + --------+ Doppler Measurements \T\ Calculations TR max coby: 190.0 cm/sec TR max P.4 mmHg RAP systole: 5.0 mmHg RVSP(TR): 19.4 mmHg Left Ventricle Ejection Fraction = 50%. Right Ventricle The right ventricle is normal in size and function. Atria Injection of contrast documented no interatrial shunt. The interatrial septum is intact with no evidence for an atrial septal defect. The left atrium is severely dilated. The left atrial appendage has been oversewn. Mitral Valve The posterior mitral valve leaflet appears to be mildly immobile. There is moderate to severe mitral regurgitation. The mitral regurgitant jet is posteriorly directed, which is consistent with anterior leaflet pathology. The mitral regurgitant jet is eccentrically directed. Tricuspid Valve There is mild to moderate tricuspid regurgitation. Aortic Valve The aortic valve is trileaflet. There is no aortic stenosis. There is no aortic insufficiency. Pulmonic Valve The pulmonic valve is normal in structure and function. There is no pulmonic valvular regurgitation. Vessels The aortic root is normal size. Pericardium There is no pericardial effusion. Conclusion A 2D transesophageal echocardiogram with color flow Doppler was performed. Ejection Fraction = 50%. Injection of contrast documented no interatrial shunt. The interatrial septum is intact with no evidence for an atrial septal defect. The left atrium is severely dilated. The left atrial appendage has been oversewn. The posterior mitral valve leaflet appears to be mildly immobile. There is moderate to severe mitral regurgitation. The mitral regurgitant jet is posteriorly directed, which is consistent with anterior leaflet pathology. The mitral regurgitant jet is eccentrically directed. There is mild to moderate tricuspid regurgitation. The aortic valve is trileaflet. There is no pericardial effusion. Final Reading Physician: Huber Jc MD electronically signed on 10/24/2016 02:05 PM Ordering Physician: Huber Jc Performed By: Huber Jc MD
== END 2016-10-21 11:42 | disposition home or self-care (01) ==
LOC: FSGY 07:17 → F2W 12:05
PROVIDERS: ADMIT Internal Medicine Cardiovascular Disease; ATTEND Internal Medicine Cardiovascular Disease
PROC: 02K83ZZ Map Conduction Mechanism, Percutaneous Approach (ICD-10-PCS; principal; 2016-10-20)
PROC: 5A1213Z Performance of Cardiac Pacing, Intermittent (ICD-10-PCS; principal; 2016-10-20)
PROC: 4A023FZ Measurement of Cardiac Rhythm, Percutaneous Approach (ICD-10-PCS; principal; 2016-10-20)
PROC: 5A2204Z Restoration of Cardiac Rhythm, Single (ICD-10-PCS; principal; 2016-10-20)
PROC: 02583ZZ Destruction of Conduction Mechanism, Percutaneous Approach (ICD-10-PCS; principal; 2016-10-20)
PROC: B246ZZ4 Ultrasonography of Right and Left Heart, Transesophageal (ICD-10-PCS; principal; 2016-10-20)
DX: I48.92 Unspecified atrial flutter (principal); I95.9 Hypotension, unspecified; I34.0 Nonrheumatic mitral (valve) insufficiency; I25.10 Atherosclerotic heart disease of native coronary artery without angina pectoris; I49.9 Cardiac arrhythmia, unspecified; I50.9 Heart failure, unspecified; I10 Essential (primary) hypertension; E78.5 Hyperlipidemia, unspecified; E03.9 Hypothyroidism, unspecified; N40.0 Benign prostatic hyperplasia without lower urinary tract symptoms; Z95.1 Presence of aortocoronary bypass graft; Z79.01 Long term (current) use of anticoagulants
CPT/HCPCS: 92960; 93005; 93306; 93312; 93613; 93621; 93653; C1731; C1732; C1766; G0378; J1100; J1644; J2250; J2370; J2405; J2704; J3010; J0461; J2720

== ENCOUNTER → 2017-06-25 | Outpatient (CLI) | payer OTHER ==
[~2017-06-25] MED LIST changes: +IOPAMIDOL (ISOVUE 370) 100 ML BTL IV ONE; -MIDAZOLAM 2 MG/2 ML VIAL IVP ONE; -NS 500 ML IV ONE; -PROPOFOL 200 MG/20 ML VIAL IVP ONE; -fentaNYL 100 MCG/2 ML INJ IVP ONE
== END ==
LOC: FIMAGING 09:11 → MERGE 09:11
PROVIDERS: ATTEND Internal Medicine Cardiovascular Disease
DX: R91.1 Solitary pulmonary nodule (principal); J84.10 Pulmonary fibrosis, unspecified; E04.2 Nontoxic multinodular goiter; R59.1 Generalized enlarged lymph nodes
CPT/HCPCS: 71275; Q9967

== ENCOUNTER → 2017-07-26 | Outpatient (CLI) | payer OTHER | LOC: FIMAGING 12:18 | PROVIDERS: ATTEND Internal Medicine | DX: S72.002A Fracture of unspecified part of neck of left femur, initial encounter for closed fracture (principal) ==